=== PATIENT | male | born 1930 | race Caucasian/White ===

== ENCOUNTER → 2016-07-16 | Outpatient (CLI) | payer MEDICARE ==
[~2016-07-16] MED LIST: COUMADIN6 MG PO; DULCOLAX10 MG RECTAL; ELIQUIS2.5 MG PO; FLEET ENEMA133 M1 RECTAL; KLOR-CON M1010 MEQ PO; LIPITOR80 MG PO; MIACALCIN3.7 ML NAS; MIRALAX17 GM PO; NORCO 325-7.5 M1 TAB PO; POLYTRIM EYEBOTH; REMERON15 M2 PO; REMERON15 MG PO; SENNA8.6 MG PO; SYNTHROID75 MCG PO
== END | disposition short-term general hospital (02) ==
LOC: CLPHYS 08:49
DX: G56.03 Carpal tunnel syndrome, bilateral upper limbs (principal); G56.13 Other lesions of median nerve, bilateral upper limbs; G56.23 Lesion of ulnar nerve, bilateral upper limbs; G62.9 Polyneuropathy, unspecified